=== PATIENT | female | born 1980 | race Hispanic/Latino ===

== ENCOUNTER 2017-12-31 02:21 | Emergency (ER) | payer BC ==
[2017-12-31] MEDS ORDERED: Acetaminophen 500 MG TAB ONE ×2 (02:36→02:39)
[2017-12-31 02:46] LABS: #Basophils 0.1 thou/uL (0.0-0.2); #Eosinphils 0.1 thou/uL (0.0-0.7); #Lymphocytes 1.3 thou/uL (1.20-3.40); #Monocytes 0.2 thou/uL (0.11-0.59); #Neutrophils 9.8 thou/uL (1.40-6.50); %Basophils 0.5 % (0.0-1.0); %Eosinophils 1.1 % (0.0-10.0); %Lymphocytes 11.4 % (21.0-51.0); %Monocytes 1.6 % (0.0-10.0); %Neutrophils 85.4 % (42.0-75.0); Hemoglobin 14.2 g/dL (12.0-16.0); Mean Corpuscular HGB CONC 35.3 g/dL (32.0-36.0); Mean Corpuscular Hemoglobin 31.6 pg (27.0-31.0); Mean Corpuscular Volume 89.6 fl (81.0-99.0); Mean Platelet Volume 6.3 fL (7.4-10.4); Platelet Count 385 thou/uL (130-400); RBC Distribution Width 11.8 % (11.5-14.5); Red Blood Cell (RBC) Count 4.49 mill/uL (4.20-5.40); White Blood Cell (WBC) Count 11.5 thou/uL (4.8-10.8)
[2017-12-31 03:06] LABS: ALT (SGPT) 26 U/L (8-55); AST (SGOT) 22 U/L (5-34); Albumin 4.2 g/dL (3.5-5.0); Alkaline Phosphatase 116 U/L (40-150); Anion Gap 15 mmol/L (10-20); BUN (Urea Nitrogen) 11 mg/dL (7.0-18.7); Bilirubin, Total 0.4 mg/dL (0.2-1.2); Calc. Creatinine Clearance 0 mL/min (70-130); Calcium 9.8 mg/dL (7.8-10.44); Carbon Dioxide 22 mmol/L (22-29); Chloride 106 mmol/L (98-107); Estimated GFR-MDRD 84; Globulin 3.6 g/dL (2.4-3.5); Glucose 111 mg/dL (70-105); Potassium 4.2 mmol/L (3.5-5.1); Protein, Total 7.8 g/dL (6.0-8.3); Sodium 139 mmol/L (136-145)
[2017-12-31 04:11] LABS: Bilirubin Negative (Negative); Blood, Urine Negative (Negative); Clarity CLOUDY (Clear); Glucose, Urine (Dipstick) Negative (Negative); Leukocyte Small (Negative); Nitrite Positive (Negative); Protein, Urine (Dipstick) Negative (Neg-Trace); Specific Gravity, Urine 1.012 (1.002-1.036); Urobilinogen 0.2 mg/dL (0.2-1.0)
[2017-12-31 04:14] LABS: Bacteria/HPF 2+ HPF (None Seen); Hyaline Casts/LPF 0-3 HYALINE CAST LPF (0-3 Hyaline); Pathc Cast-AUWi Flag 0.14 (0-2.49); RBC/HPF 0-3 HPF (0-3)
[2017-12-31 04:21] LABS: Pregnancy Test - Urine (BHCG) Negative (Negative)
[2017-12-31 04:22] LABS: Pregu Control Background? CLEAR/WHITE (CLR/WHITE); Pregu Control Bar Appear? YES (CONTROL BAR); Specific Gravity 1.012 (1.002-1.036)
--- NOTE | 2017-12-31 08:33 | RAD ---
AP VIEW CHEST: HISTORY: Fever. FINDINGS: AP view chest was obtained on 12/31/17. AP view chest demonstrates the lungs to be well aerated. No evidence of active intrathoracic disease is seen. No evidence of effusions, pneumonia, or pneumothorax is seen. IMPRESSION: Unremarkable AP view chest. POS: [facility]
== END 2017-12-31 05:00 | disposition home or self-care (01) ==
LOC: ERS 02:21
DX: N12 Tubulo-interstitial nephritis, not specified as acute or chronic (principal); F32.9 Major depressive disorder, single episode, unspecified
CPT/HCPCS: 71045; 80053; 81003; 81015; 81025; 83605; 85025; 87040; 96361; 96374; J0696

== ENCOUNTER 2019-01-16 08:32 | Day surgery (SDC) | payer BC ==
[2019-01-15 15:30] VITALS: BMI 27.8
[~2019-01-16 08:32] MED LIST: EPINEPHrine 0.3 MG in Ophthalmic Irrigation Solution 500 ML FS SCH
[2019-01-16] MEDS ORDERED: Cyclopentolate 1% Opth Drop 2 ML BOT ONE (08:42)
[2019-01-16] MEDS ORDERED: Phenylephrine 2.5% Ophth Soln 5 ML BOT ONE (08:42)
[2019-01-16] MEDS ORDERED: Midazolam HCl 2 mg/2 ml Vial ONE ×2 (10:56→11:54)
[2019-01-16] MEDS ORDERED: PROPOFOL 20 ML ONE (10:56)
[2019-01-16] MEDS ORDERED: Fentanyl 100 MCG/2 ML VIAL ONE (10:56)
[2019-01-16] MEDS ORDERED: Atropine Sulfate 1% Ophth Ointment 3.5 gm Tube ONE (15:21)
[2019-01-16] MEDS ORDERED: CEFAZOLIN 1 GM VIAL ONE (15:21)
[2019-01-16] MEDS ORDERED: Lidocaine 1% PF 5 ML VIAL ONE (15:21)
[2019-01-16] MEDS ORDERED: Triamcinolone 40 MG/ML VIAL ONE (15:21)
[2019-01-16] MEDS ORDERED: PROPOFOL 200 MG/20 ML VIAL ONE (15:21)
[2019-01-16] MEDS ORDERED: Lidocaine 4% PF 5 ML AMP ONE (15:21)
[2019-01-16] MEDS ORDERED: Bupivacaine 0.75% 10 ML AMP ONE (15:21)
[2019-01-16] MEDS ORDERED: Maxitrol 0.1% Opth Oint 3.5 GM TUBE ONE (15:21)
--- NOTE | 2019-01-16 17:10 | OP ---
DATE OF PROCEDURE: 01/16/2019 PREOPERATIVE DIAGNOSIS: Glaucoma, left eye. POSTOPERATIVE DIAGNOSIS: Glaucoma, left eye. PROCEDURES PERFORMED: Pars plana vitrectomy, membrane peel, tube shunt, scleral patch graft, left eye. ANESTHESIA: Local with monitored anesthesia care. DESCRIPTION OF PROCEDURE: The patient was identified in the preoperative holding area. Appropriate informed consent for the planned surgical procedure on the left eye had been obtained. The patient was transported to the operative suite, where appropriate cardiopulmonary monitoring was established. Local anesthesia was obtained using retrobulbar modified Van Lint lid block using 50:50 mixture of 4% lidocaine and 0.75% bupivacaine. The patient was prepped and draped in usual sterile manner for ophthalmic surgery on the left eye. Lid speculum was placed in the left eye. A 25-gauge trocar was placed through the conjunctiva and sclera superotemporally, inferotemporally, and supranasally. Infusion line was placed inferotemporally. Light pipe and vitreous cutter were inserted into the eye. Core vitrectomy was performed. Conjunctival peritomy was created. An FP7 tube shunt was placed superotemporally, fixated in place with 5-0 Mersilene suture. Tube was introduced into the port for the superior sclerotomy 4 mm posterior to the limbus. Tutoplast graft was placed over the insertion site of the tube. Conjunctiva was closed with 6-0 plain gut suture. Retrobulbar Kenalog and subconjunctival Ancef were placed. Atropine antibiotic ointment was placed, and the eye was patched and shielded. The patient was taken to the postoperative recovery unit in good condition, having suffered no immediate perioperative complications. The patient was instructed to keep the patch and shield on and advised to avoid lifting or bending. Followup appointment with Dr. Villagran. Job ID: [id number]
== END 2019-01-16 13:17 | disposition home or self-care (01) ==
LOC: SDC 08:32
PROVIDERS: ATTEND Ophthalmology Retina Specialist
PROC: 08T53ZZ Resection of Left Vitreous, Percutaneous Approach (ICD-10-PCS; principal; 2019-01-16)
DX: H40.9 Unspecified glaucoma (principal)
CPT/HCPCS: J0171; J0690; J2001; J2250; J2704; J3010; J3301; J3490

== ENCOUNTER 2020-02-18 09:03 | Outpatient (CLI) | payer BC, OTHER | END 2020-02-18 09:04 | disposition home or self-care (01) | LOC: LABBT 09:03 | PROVIDERS: ATTEND Ophthalmology Retina Specialist | DX: Z01.812 Encounter for preprocedural laboratory examination (principal); Z11.59 Encounter for screening for other viral diseases; H40.9 Unspecified glaucoma | CPT/HCPCS: 87635; U0003 ==

== ENCOUNTER 2020-02-19 11:16 | Day surgery (SDC) | payer BC ==
[2020-02-18 12:48] VITALS: BMI 27.4
[~2020-02-19 11:16] MED LIST changes: -EPINEPHrine 0.3 MG in Ophthalmic Irrigation Solution 500 ML FS SCH; +EPINEPHrine 0.3 MG in Ophthalmic Irrigation Solution 500 ML IRR SCH
[2020-02-19] MEDS ORDERED: Cyclopentolate 1% Opth Drop 2 ML BOT ONE (12:04)
[2020-02-19] MEDS ORDERED: Phenylephrine 2.5% Ophth Soln 5 ML BOT ONE (12:05)
[2020-02-19] MEDS ORDERED: CEFAZOLIN 1 GM VIAL ONE (12:10)
[2020-02-19] MEDS ORDERED: Lidocaine 4% PF 5 ML AMP ONE (12:10)
[2020-02-19] MEDS ORDERED: Lidocaine 1% PF 5 ML VIAL ONE (12:10)
[2020-02-19] MEDS ORDERED: PROPOFOL 200 MG/20 ML VIAL ONE (12:10)
[2020-02-19] MEDS ORDERED: Bupivacaine PF 0.75% SDV 10 ML ONE (12:10)
[2020-02-19] MEDS ORDERED: Triamcinolone 40 MG/ML VIAL ONE (12:10)
--- NOTE | 2020-02-20 13:50 | OP ---
DATE OF PROCEDURE: 02/19/2020 PREOPERATIVE DIAGNOSIS: Glaucoma, right eye. POSTOPERATIVE DIAGNOSIS: Glaucoma, right eye. PROCEDURES PERFORMED: Pars plana vitrectomy, tube shunt and scleral patch graft and external reservoir, right eye. ANESTHESIA: Local with monitored anesthesia care. PROCEDURE IN DETAIL: The patient was identified in the preoperative holding area. Appropriate informed consent for the planned surgical procedure on the right eye had been obtained. The patient was then transported to the operative suite. Appropriate cardiopulmonary monitoring was established. Local anesthesia was obtained using retrobulbar modified van Lint lid block using 50:50 mixture of 4% lidocaine 0.75% bupivacaine. The patient was prepped in the usual sterile manner for ophthalmic surgery on the right eye. Lid speculum was placed in the right eye. Supratemporal conjunctival peritomy was created by sharp dissection with Leo scissors, and an Ahmed FP7 tube shunt was fixated 14 mm posterior to the limbus using 5-0 Mersilene sutures. Trocars were placed supratemporally, inferotemporally, and supranasally. Infusion was placed inferotemporally. Light pipe vitreous cutter inserted into the eye. Core vitrectomy was performed. Posterior hyaloid face was elevated and peeled across the macula using vacuum suction. The vitreous was trimmed carefully into the periphery using wide field viewing device. The tube shunt was primed using balanced salt solution, and the tube was inserted into a 22-gauge sclerotomy 5 mm posterior to the limbus superotemporally. Position of the tube in the eye was verified, and Tutoplast graft was fixated over the tube insertion site using 7-0 Vicryl suture. Conjunctiva was closed with 6-0 plain gut suture. The shunt was noted to be draining well. Retrobulbar Kenalog and subconjunctival Ancef were placed. Antibiotic ointment was placed. The eye was patched and shielded. The patient was taken to postop recovery unit in good condition, having suffered no immediate perioperative complications. The patient was instructed to keep patch and shield on, avoid lifting or bending , followup appointment with Dr. Villagran. Job ID: [id number] MTDD
== END 2020-02-19 15:38 | disposition home or self-care (01) ==
LOC: SDC 11:16
PROVIDERS: ATTEND Ophthalmology Retina Specialist
PROC: 08123J4 Bypass Right Anterior Chamber to Sclera with Synthetic Substitute, Percutaneous Approach (ICD-10-PCS; principal; 2020-02-19)
PROC: 08T43ZZ Resection of Right Vitreous, Percutaneous Approach (ICD-10-PCS; principal; 2020-02-19)
DX: H40.2210 Chronic angle-closure glaucoma, right eye, stage unspecified (principal); Z79.899 Other long term (current) drug therapy; Z91.048 Other nonmedicinal substance allergy status
CPT/HCPCS: J0171; J0690; J2001; J2704; J3301; J3490; L8612

== ENCOUNTER 2020-06-07 08:56 | Outpatient (CLI) | payer BC, OTHER ==
[2020-06-08 14:57] LABS: SARS-CoV-2 MS2 Positive; SARS-CoV-2 N Gene Negative; SARS-CoV-2 S Gene Negative; SARS-CoV-2 by NAA Not Detected (NotDetected); SARS-CoV-2 orf1ab Negative
== END 2020-06-07 08:57 | disposition home or self-care (01) ==
LOC: LABBT 08:56
PROVIDERS: ATTEND Ophthalmology Retina Specialist
DX: Z20.828 Contact with and (suspected) exposure to other viral communicable diseases (principal)
CPT/HCPCS: 87635; U0003

== ENCOUNTER 2020-06-10 08:21 | Day surgery (SDC) | payer BC ==
[2020-06-08 13:34] VITALS: BMI 27.4
[~2020-06-10 08:21] MED LIST changes: -EPINEPHrine 0.3 MG in Ophthalmic Irrigation Solution 500 ML IRR SCH; +Fentanyl 100 MCG/2 ML VIAL ONE; +Fluorouracil 100 MG, Enoxaparin Sodium 25 MG, EPINEPHrine 0.3 MG in Ophthalmic Irrigati... IRR SCH; +Midazolam HCl 2 mg/2 ml Vial ONE
[2020-06-10] MEDS ORDERED: Phenylephrine 2.5% Ophth Soln 5 ML BOT ONE (08:50)
[2020-06-10] MEDS ORDERED: Cyclopentolate 1% Opth Drop 2 ML BOT ONE (08:50)
[2020-06-10] MEDS ORDERED: Midazolam HCl 2 mg/2 ml Vial ONE (09:31)
[2020-06-10] MEDS ORDERED: Lidocaine 1% PF 5 ML VIAL ONE (10:47)
[2020-06-10] MEDS ORDERED: PROPOFOL 200 MG/20 ML VIAL ONE (10:47)
[2020-06-10] MEDS ORDERED: Maxitrol 0.1% Opth Oint 3.5 GM TUBE ONE (10:47)
[2020-06-10] MEDS ORDERED: Triamcinolone 40 MG/ML VIAL ONE (10:47)
[2020-06-10] MEDS ORDERED: Bupivacaine PF 0.75% SDV 10 ML ONE (10:47)
[2020-06-10] MEDS ORDERED: Lidocaine 4% PF 5 ML AMP ONE (10:47)
[2020-06-10] MEDS ORDERED: CEFAZOLIN 1 GM VIAL ONE (10:47)
--- NOTE | 2020-06-11 13:39 | OP ---
DATE OF PROCEDURE: 06/10/2020 PREOPERATIVE DIAGNOSIS: Glaucoma right eye. POSTOPERATIVE DIAGNOSIS: Glaucoma right eye. PROCEDURES PERFORMED: Pars plana vitrectomy; tube shunt, right eye; revision of tube shunt, right eye. ANESTHESIA: General endotracheal anesthesia. DESCRIPTION OF PROCEDURE: The patient was identified in the preoperative holding area. Appropriate informed consent for the planned surgical procedure on the right eye had been obtained. The patient was transported to the operative suite and appropriate cardiopulmonary monitoring was established. Local anesthesia was obtained using retrobulbar modified Van Lint lid block using 50:50 mixture of 4% lidocaine and 0.75% bupivacaine. The patient was prepped and draped in usual sterile manner for ophthalmic surgery on the right eye. Lid speculum was placed in the right eye. Superior temporal previously placed tube shunt was exposed and the valve was purged. Good flow was noted. Conjunctiva peritomy was created inferonasally and the tube was sutured to the sclera 14 mm posterior to the limbus using 5-0 Mersilene suture. Tube was introduced into the vitreous cavity through 22-gauge incision, tube was noted to be centered well. Conjunctiva was closed with 6-0 plain gut suture. Tutoplast graft was placed over the tube. Conjunctiva was closed with 6-0 plain gut suture. Retrobulbar Kenalog sequential Ancef was placed. Antibiotic ointment was placed. The eye was patched and shielded. The patient was taken to postop recovery unit in good condition having suffered no immediate perioperative complication. The patient was instructed to keep patch shield on, avoid lifting or bending. Followup appointment with Dr. Villagran. Job ID: [id number]
== END 2020-06-10 13:11 | disposition home or self-care (01) ==
LOC: SDC 08:21
PROVIDERS: ATTEND Ophthalmology Retina Specialist
PROC: 08W0XJZ Revision of Synthetic Substitute in Right Eye, External Approach (ICD-10-PCS; principal; 2020-06-10)
DX: H40.2213 Chronic angle-closure glaucoma, right eye, severe stage (principal); Z79.899 Other long term (current) drug therapy; Z91.048 Other nonmedicinal substance allergy status
CPT/HCPCS: J0171; J0690; J1650; J2001; J2250; J2704; J3010; J3301; J3490; J9190; L8612

== ENCOUNTER 2025-07-10 10:36 | Outpatient (CLI) | payer BC | END 2025-07-10 10:37 | disposition home or self-care (01) | LOC: BICRAD 10:36 | PROVIDERS: ATTEND Internal Medicine Rheumatology | DX: M25.561 Pain in right knee (principal); M25.562 Pain in left knee; M17.11 Unilateral primary osteoarthritis, right knee ==